=== PATIENT | male | born 1960 | race Caucasian/White ===

== ENCOUNTER 2016-10-28 05:44 | Day surgery (SDC) | payer BC, OTHER ==
[2016-10-28] MEDS ORDERED: LACTATED RINGERS 1,000 ML ONE (06:10)
[2016-10-28] MEDS ORDERED: PROPOFOL 200 MG/20 ML VIAL IV ONE (07:00)
--- NOTE | 2016-10-28 09:42 | OP ---
DATE OF PROCEDURE: 10/28/16 PREOPERATIVE DIAGNOSIS: 1. Bright red blood per rectum. 2. History of hemorrhoids. 3. Colon cancer screen. POSTOPERATIVE DIAGNOSIS: 1. Rectal mass with active bleeding. 2. Diverticulosis. PROCEDURE: 1. Colonoscopy with biopsy of rectal mass. SURGEON: Martin Tejeda MD. ANESTHESIA: MAC by Darci Houston CRNA. ESTIMATED BLOOD LOSS: 3 mL. COMPLICATIONS: None apparent. TECHNIQUE: After informed consent was obtained from the patient, the patient was taken to the Endoscopy Suite and put in the left lateral decubitus position. After adequate IV sedation was obtained, a digital rectal exam was performed. The sphincter tone was slightly diminished. He was found to have an easily palpated, circumferential rectal mass that started about one knuckle into the anus. The colonoscope was easily inserted and then the rectal mass was identified and pictures were taken. The colonoscope was cautiously passed and fortunately was then easily advanced all the way to the cecum. The bowel prep was fair. There was a lot of liquid stool that had to be suctioned clear. I did get a good look at the reset of the colon. The cecum, ascending colon, transverse colon, descending colon, and sigmoid colon were all free of any polyps or masses. He did have a few diverticula through the sigmoid region. The problems in the rectal area start around 12 cm and extend all the way down to the anal verge. The largest mass is more proximal and it was biopsied times two. There was some bleeding from the biopsy sites, but there was some oozing from this whole area in general to begin with. I did not try to remove any of the polyps or masses, but only took biopsies for an attempt at tissue diagnosis. Dr. Monae, our general surgeon, was consulted during the case and he visualized the mass and was present when the biopsies were taken. The patient, I am afraid, has potentially really bad disease. We are going to work to get a CT scan of his abdomen and pelvis performed as soon as possible. He will followup with me early next week. We are going to have him hold his aspirin, but he can continue to take his other medications. He will likely be headed towards the rectal surgeon and medical oncologist in the near future. #[id number] [facility]
[2016-10-28 09:45] VITALS: TEMP 99
[2016-10-28 09:47] VITALS: BP 158/99; O2SAT 99
== END 2016-10-28 09:35 | disposition home or self-care (01) ==
LOC: AMB 05:44
PROVIDERS: ATTEND Family Medicine
DX: K62.5 Hemorrhage of anus and rectum (principal); C20 Malignant neoplasm of rectum; K57.30 Diverticulosis of large intestine without perforation or abscess without bleeding; E11.9 Type 2 diabetes mellitus without complications; I10 Essential (primary) hypertension; E78.00 Pure hypercholesterolemia, unspecified; G47.33 Obstructive sleep apnea (adult) (pediatric); I25.10 Atherosclerotic heart disease of native coronary artery without angina pectoris; E66.9 Obesity, unspecified; Z95.1 Presence of aortocoronary bypass graft; Z79.899 Other long term (current) drug therapy
CPT/HCPCS: 00810; 45380; 82948; J3490; J7120

== ENCOUNTER → 2016-10-29 | Outpatient (CLI) | payer OTHER ==
--- NOTE | 2016-10-29 14:24 | CT ---
Study: CT abdomen and pelvis. Indication: RECTAL MASS Technique: Venous none. Findings: Venous phase CT imaging of the abdomen and pelvis obtained after intravenous administration of contrast. Comparison: None. Findings: Heart size normal. Lung bases clear. Coronary artery and abdominal aortic atherosclerosis. Liver, gallbladder, pancreas, spleen, adrenal glands, right kidney, bladder, prostate gland unremarkable. Several millimetric left renal stones suspected without hydronephrosis. Tiny bilateral fat containing inguinal hernias, right greater than left. Mild circumferential rectal wall thickening noted. Colonic diverticulosis without diverticulitis. Stomach, small bowel, and appendix unremarkable. No free fluid. No free air. No pathologically enlarged abdominopelvic lymphadenopathy. Degenerative changes of the spine. Impression: Mild circumferential rectal wall thickening which may relate to the reported history of rectal mass. Colonoscopy can better evaluate if not are not performed. Colonic diverticulosis without diverticulitis. Atherosclerosis. Additional findings as above. Electronically signed by: Cisco Reno MD 10/29/2016 14:23
== END | disposition home or self-care (01) ==
LOC: CT 10:42
PROVIDERS: ATTEND Family Medicine
DX: K82.9 Disease of gallbladder, unspecified (principal)

== ENCOUNTER → 2017-01-20 | Outpatient (CLI) | payer BC, OTHER | END | disposition home or self-care (01) | LOC: BFHH 17:45 | PROVIDERS: ATTEND Family Medicine | DX: R35.0 Frequency of micturition (principal); R30.0 Dysuria ==

== ENCOUNTER → 2017-02-02 | Outpatient (CLI) | payer OTHER | END | disposition home or self-care (01) | LOC: LAB.O 14:14 | PROVIDERS: ATTEND Urology | DX: R31.9 Hematuria, unspecified (principal) ==

== ENCOUNTER 2017-07-07 06:22 | Day surgery (SDC) | payer OTHER ==
[2017-07-07] MEDS ORDERED: LACTATED RINGERS 1,000 ML ONE (06:38)
[2017-07-07] MEDS ORDERED: LIDOCAINE 1% 10 ML VIAL INJ ONE (07:00)
[2017-07-07] MEDS ORDERED: PROPOFOL 200 MG/20 ML VIAL IV ONE (07:00)
[2017-07-07] MEDS ORDERED: SODIUM CHLORIDE 0.9% 50 ML VIAL ONE ×2 (07:00→07:10)
[2017-07-07] MEDS ORDERED: ceFAZolin SODIUM 1 GM VIAL ONE (07:00)
[2017-07-07] MEDS ORDERED: LIDOCAINE 1% 50 ML VIAL INJ ONE (07:09)
[2017-07-07] MEDS ORDERED: SODIUM BICARBONATE VIAL 50 MEQ/50 ML VIAL ONE (07:09)
[2017-07-07] MEDS ORDERED: HEPARIN SODIUM 100 U/ML 5 ML SYG IV ONE (07:10)
--- NOTE | 2017-07-07 08:20 | RAD ---
EXAM DESCRIPTION: Chest,2 Views CLINICAL HISTORY: PREOPERATIVE COMPARISON: None available FINDINGS: Postoperative changes are noted in the mediastinum. The cardiomediastinal silhouette is otherwise unremarkable. There is no airspace consolidation or pleural effusion. The bronchovascular markings are within normal limits, and the lungs are not hyperinflated. There is no pneumothorax or acute fracture. IMPRESSION: Postoperative changes in the mediastinum, otherwise unremarkable exam. Electronically signed by: Shorty Cantu MD 07/07/2017 8:18 AM CDT
[2017-07-07] MEDS ORDERED: ceFAZolin SODIUM 1 GM VIAL IVPB ONE (09:05)
[2017-07-07 10:09] VITALS: O2SAT 96
--- NOTE | 2017-07-07 10:21 | OP ---
DATE OF PROCEDURE: 07/07/17 PREOPERATIVE DIAGNOSIS: 1. Carcinoma of the rectum pending chemotherapy. POSTOPERATIVE DIAGNOSIS: 1. Carcinoma of the rectum pending chemotherapy. PROCEDURE: 1. Insertion of right subclavian venous access port. SURGEON: Benedicto Monae MD. COPY MESSENGER: None. ANESTHESIA: Local infiltration of 1% lidocaine with bicarb and IV sedation by Anesthesia. INDICATION: The patient is a 56-year-old male who had a very low rectal cancer. He underwent abdominoperineal resection, has had radiation and is now pending chemotherapy. He was brought to the Surgical Suite today for insertion of the port after the risks, benefits and alternatives to the procedure were discussed and accepted. FINDINGS: Fluoroscopy revealed the guidewire and then the catheter in the superior vena cava. PROCEDURE: The patient was brought to the Surgical Suite and placed in supine position, prepped and draped in the usual sterile manner. He was given 2 grams of Ancef and a surgical time-out was taken. When this was done, the patient was placed in Trendelenburg position. Local infiltration of anesthesia was obtained in the infraclavicular area with lidocaine and then the needle was walked under the clavicle. A 22-gauge needle was introduced. Eventually, venous blood was identified. A stab wound was made with a #15 blade and the 18- gauge thin wall needle was introduced in the same track. Venous blood was easily aspirated. The guidewire was introduced to approximately 25 cm. No ectopy was noted. The needle was removed. At this point, a towel was placed over the field and fluoroscopy was used to identify the guidewire in the superior vena cava. At this point, the port pocket was formed in the usual manner with local anesthesia, sharp knife and then blunt dissection and then electrocautery. Hemostasis was obtained with electrocautery. The port was introduced into the port pocket without difficulty and the catheter was tunneled from the port pocket to the infraclavicular incision. It was then cut to appropriate length. The dilator introducer was introduced over the guidewire and the guidewire and dilator were removed. The catheter was introduced through the introducer and the introducer was removed in the usual manner. At this point, the port was accessed, first with heparinized saline. It was easily aspirated and was flushed. The heplock was used again to aspirate and flush the catheter. At this point, a towel was placed over the field and fluoroscopy identified the catheter in the superior vena cava. The skin incisions were then closed in the usual manner with interrupted 2-0 Vicryl subcutaneous sutures and subcuticular 4-0 Vicryl simple sutures in the skin along with benzoin and Steri-Strips. Sterile pressure dressing was applied. The patient tolerated the procedure well. The patient was taken back to the Ambulatory Unit in stable condition. Estimated blood loss was approximately 25 mL. All sponge, needle and instrument counts were correct. Stat portable chest x-ray is pending. #[id number] [facility]
--- NOTE | 2017-07-07 10:23 | RAD ---
EXAM DESCRIPTION: Chest,1 View CLINICAL HISTORY: PORT PLACEMENT VERIFICATION COMPARISON: July 06, 2017 FINDINGS: There has been interval placement of a right-sided Mediport device with the tip of the port catheter projecting of the SVC at or just proximal to the cavoatrial junction. No complication is seen. Again noted are postoperative changes in the mediastinum. The heart is not enlarged. There is no airspace consolidation or pleural effusion. The bronchovascular markings are within normal limits, and the lungs are not hyperinflated. There is no pneumothorax or acute fracture. IMPRESSION: Interval placement of a right-sided Mediport device without apparent complication. Electronically signed by: Shorty Cantu MD 07/07/2017 10:22 AM CDT
[2017-07-07 10:47] VITALS: BP 148/84; TEMP 98.4
== END 2017-07-07 10:31 | disposition home or self-care (01) ==
LOC: AMB 06:22
PROVIDERS: ATTEND Surgery
DX: C20 Malignant neoplasm of rectum (principal); I10 Essential (primary) hypertension; I25.10 Atherosclerotic heart disease of native coronary artery without angina pectoris; E11.9 Type 2 diabetes mellitus without complications; F17.220 Nicotine dependence, chewing tobacco, uncomplicated; Z95.1 Presence of aortocoronary bypass graft; I45.2 Bifascicular block; Z79.84 Long term (current) use of oral hypoglycemic drugs; Z79.82 Long term (current) use of aspirin; Z79.899 Other long term (current) drug therapy
CPT/HCPCS: 00532; 36415; 36416; 36561; 71010; 71020; 76000; 80048; 81001; 82948; 85025; 93005; A4216; C1788; J0690; J1642; J3490; J7120

== ENCOUNTER → 2017-07-17 | Outpatient (CLI) | payer OTHER | END | disposition home or self-care (01) | LOC: LAB.O 12:17 | PROVIDERS: ATTEND Internal Medicine Hematology & Oncology | DX: C20 Malignant neoplasm of rectum (principal) ==

== ENCOUNTER 2017-07-20 10:33 | Inpatient (IN) | payer OTHER ==
--- NOTE | 2017-07-20 14:38 | HP ---
SUPERVISING PHYSICIAN: Manfred Solitario M.D. CHIEF COMPLAINT: Diarrhea. HISTORY OF PRESENT ILLNESS: This is a 56 year-old male patient who was diagnosed with rectal adenocarcinoma and had a colon resection with colostomy in December of 2016. He had recently started his chemotherapy on July 11. Right after the completion of his chemotherapy, he had severe diarrhea with some nausea and vomiting. The patient thought that the nausea, vomiting and diarrhea was associated with his chemotherapy so he tried to tough it out at home, and actually thought about coming to the Emergency Room several times during the past week and a half. He had an appointment with his primary care physician, Dr. Martin Tejeda, today. At his office visit today, he was very sick and continued with diarrhea. His lab at the clinic showed a WBC of 6.5, hemoglobin 16, hematocrit 44.6 with platelets of 314 and neutrophils of 74.5%. His glucose was 141, BUN 82, creatinine 3.9. He has a baseline creatinine of 0.85. Potassium 3, ALT 77. He also had some fairly significant oral ulcers and his mouth was very sensitive, so Dr. Tejeda called me for direct admission. PAST MEDICAL HISTORY: 1. Type 2 diabetes mellitus. 2. Hypertension. 3. Obesity. 4. Coronary artery disease. 5. Hyperlipidemia. 6. Lumbar disc disease. 7. Rectal adenocarcinoma. PAST SURGICAL HISTORY: 1. Colon resection with colostomy in December of 2016. 2. Right great toe fracture repair. 3. Left rotator cuff repair. 4. Coronary artery bypass graft in 2012 that was complicated by Wernicke's encephalopathy. 5. Tonsillectomy as a child. OUTPATIENT MEDICATIONS: Per the EMR and awaiting verification. ALLERGIES: NO KNOWN DRUG ALLERGIES. FAMILY HISTORY: Unknown. SOCIAL HISTORY: He is a teacher. He is . He has 2 children. He has a past history of cigarette smoking but has since quit and he currently uses smokeless tobacco. He drinks alcohol on a social basis and he denies any illicit drug use. REVIEW OF SYSTEMS: Positive for fatigue. Negative for fever or weight changes. HEENT: Positive for ulcers in his mouth as well as a sore tongue. Negative for ear pain, vision changes, sinus symptoms or sore throat. RESPIRATORY: Negative for dyspnea, wheezing or cough. CARDIAC: Negative for chest pain, palpitations or tachycardia. GASTROINTESTINAL: As per History of Present Illness. GENITOURINARY: Negative for hematuria, dysuria or polyuria. SKIN: Negative for rashes or lesions. NEUROLOGIC: Negative for headaches, dizziness or seizures. PHYSICAL EXAMINATION: VITAL SIGNS: Blood pressure 120/62, pulse 98, respiratory rate 18, O2 sat is 92 % on room air. GENERAL: This is a 56 year-old obese male patient who is lying in his hospital bed. HEENT: Normocephalic and atraumatic. Pupils are equal and reactive. Oropharynx is clear but his oral mucous membranes are dry. He does have several ulcerations on the lateral aspect of his tongue as well as in his oral cavity. NECK: Supple without mass. RESPIRATORY: Clear to auscultation bilaterally. CHEST: There is equal rise and fall of the chest with inspiration and expiration. CARDIOVASCULAR: Regular rate and rhythm. ABDOMEN: Soft, nondistended, non-tender. Bowel sounds are positive. He has a colostomy to his left upper quadrant. SKIN: Warm and dry. EXTREMITIES: No cyanosis, clubbing or edema. NEUROLOGIC: He is awake, alert and oriented times three. LABORATORY: As per the history of present illness. ASSESSMENT: 1. Severe diarrhea secondary to recent chemotherapy administration. 2. Oral ulcers. 3. Dehydration secondary to the diarrhea. 4. Acute renal failure with a creatinine of 3.9 with baseline creatinine of 0.85. 5. Nausea and vomiting prior to admission that is mostly resolved most likely secondary to his chemotherapy. 6. Diabetes mellitus type 2. 7. Coronary artery disease. 8. Hypertension. 9. History of rectal adenocarcinoma with a colon resection and colostomy in 2016. 10. Obesity. 11. Hyperlipidemia. PLAN: We will admit the patient to the hospital. I will give him IV fluids. I spoke with Dr. Guevara, hydraulic lift operator, and he agreed that his renal function should improve with fluids. He has been given Lomotil for his diarrhea. I will also give him some Protonix for ulcer prophylaxis as well as Lovenox for DVT prophylaxis. Repeated his lab for in the morning. I have ordered pulmonary hygiene. Hopefully once his renal function is corrected and we normalize his labs as well as stop his diarrhea, he will be able to be discharged home. Dr. Verde is his oncologist and I may need to touch base with him tomorrow, but otherwise we will continue to monitor the patient closely and follow as needed. Dr. Solitario is the collaborating physician available for consultation. [facility][id number] [facility]ITAL[facility]
[2017-07-20] MEDS ORDERED: SODIUM CHLORIDE 0.9% (FLUSH) 10 ML SYG IV PRN (15:18)
[2017-07-20] MEDS ORDERED: IV SET AND CAP CHANGE INJ INJ SCH (15:30)
[2017-07-20] MEDS ORDERED: DEXTROSE 50% 25 GM/50 ML SYG IV PRN (15:36)
[2017-07-20] MEDS ORDERED: GLUCAGON INJ 1 MG VIAL SUBCU PRN (15:36)
[2017-07-20] MEDS: PANTOPRAZOLE SODIUM IV 40 MG VIAL IV SCH (16:03)
[2017-07-20] MEDS: SUCRALFATE 1 GM/10 ML 1 GM UD PO SCH ×2 (16:03→20:21)
[2017-07-20] MEDS: ENOXAPARIN SODIUM 30 MG/0.3 ML SYG SUBCU SCH (16:09)
[2017-07-20] MEDS: KCL 40MEQ/NS 1,000 ML IVS PRN (16:09)
[2017-07-20] MEDS ORDERED: DIPHENOXYLATE HCL/ATROPINE 2.5 MG TAB PO PRN (17:14)
[2017-07-20] MEDS: INSULIN LISPRO 100 UNITS/ML PEN SUBCU SCH ×2 (17:38→21:25)
[2017-07-20] MEDS ORDERED: POTASSIUM CHLORIDE 20 MEQ TAB PO ONE (17:40)
[2017-07-20] MEDS ORDERED: SODIUM CHLORIDE 0.9% (FLUSH) 10 ML SYG IV SCH (21:00)
--- NOTE | 2017-07-20 21:04 | PCM.CORE ---
Physician DVT/VTE - Prophylaxis Currently: Patient already on anticoagulation therapy - Nurse DVT Assessment & Total Each Risk Factor Represents 1 Point: Age 41-60 DVT Assessment Score: 1 - 2 Moderate Risk Treatments: Early Ambulation *, Sequential Compression Device
[2017-07-20] MEDS ORDERED: SODIUM CHLORIDE 0.9% 500ML 500 ML IVS ONE (21:42)
[2017-07-21] MEDS: KCL 40MEQ/NS 1,000 ML IVS PRN ×2 (00:14→11:41)
[2017-07-21] MEDS: PANTOPRAZOLE SODIUM IV 40 MG VIAL IV SCH (06:31)
[2017-07-21] MEDS: SUCRALFATE 1 GM/10 ML 1 GM UD PO SCH ×4 (06:31→20:55)
[2017-07-21] MEDS ORDERED: POTASSIUM CHLORIDE 20 MEQ TAB PO ONE (07:08)
[2017-07-21] MEDS: INSULIN LISPRO 100 UNITS/ML PEN SUBCU SCH ×4 (08:22→20:56)
--- NOTE | 2017-07-21 08:41 | PN ---
SUPERVISING PHYSICIAN: Manfred Solitario MD DATE: 07/21/17 SUBJECTIVE: The patient is sitting up in his bed. He is reading. He has concerns that his blood pressure has been low overnight. I explained to him that it was most likely due to dehydration and that we were correcting that. Other than that, he has no complaints of nausea, vomiting, chest pain or shortness of breath. He does continue to have quite a bit of diarrhea in his colostomy. OBJECTIVE: VITAL SIGNS: Afebrile. Heart rate 73. Blood pressure 92/56. Respiratory rate 20. O2 saturation 94% on room air. LUNGS: Clear to auscultation bilaterally. CARDIAC: Regular rate and rhythm. ABDOMEN: Soft, nondistended, nontender. Bowel sounds are positive. EXTREMITIES: No cyanosis, clubbing or edema. NEUROLOGIC: Awake, alert and oriented times three. LABORATORY: WBCs 5.4, hemoglobin 13.7, hematocrit 40.4. Platelet count 216. Sodium 135, potassium 3.3, chloride 105, carbon dioxide 20, BUN 23, creatinine improved from 3.9 yesterday to 3.3 today. Glucose 114, serum osmolality 299.6. Calcium 7.7. All other labs and films have been reviewed via the EMR. ASSESSMENT: 1. Severe diarrhea secondary to recent chemotherapy administration. 2. Oral ulcers. 3. Dehydration secondary to the diarrhea. 4. Acute renal failure with a creatinine of 3.9 on admission, now at 3.3 with baseline creatinine of 0.85. 5. Nausea and vomiting prior to admission that is mostly resolved, but continues to have diarrhea like stools in his colostomy bag 2 to 3 times daily, most likely secondary to his chemotherapy. 6. Diabetes mellitus, type 2. 7. Coronary artery disease. 8. Hypertension. 9. History of rectal adenocarcinoma with a colon resection and colostomy in 2016. 10. Obesity. 11. Hyperlipidemia. 12. Borderline hypotension during hospital stay. PLAN: We will continue present supportive care. I will continue with his IV fluids although I will reduce the rate. I have held his blood pressure medicine with the exception that he will get a half dose of his metoprolol today and we will have to reassess his blood pressure medications in the next day or so. Once his renal function has somewhat corrected as well as his blood pressure stabilizes, we will able to be discharge him home. We will also need to correct his dehydration. We may need to touch base with Dr. Verde, his oncologist, but otherwise we will continue to monitor the patient closely and follow as needed. Dr. Solitario is the collaborating physician and available for consultation. #[id number] [facility]
[2017-07-21] MEDS ORDERED: METOPROLOL SUCCINATE XL 25 MG TAB PO ONE (09:00)
[2017-07-21] MEDS ORDERED: NON-FORMULARY MEDICATION 1 EA MIS (Atorvastatin Calcium [Lipitor] 40 MG) PO SCH (09:00)
[2017-07-21] MEDS ORDERED: metFORMIN XR 500 MG TAB.ER.24 PO SCH (09:00)
[2017-07-21] MEDS ORDERED: [UNRECOGNIZED DRUG - OTHER] PO SCH (09:00)
[2017-07-21] MEDS ORDERED: METOPROLOL SUCCINATE XL 50 MG TAB PO SCH (09:00)
[2017-07-21] MEDS: ENOXAPARIN SODIUM 30 MG/0.3 ML SYG SUBCU SCH (09:47)
[2017-07-21] MEDS: amLODIPine BESYLATE 5 MG TAB PO SCH (09:48)
[2017-07-21] MEDS: ASPIRIN EC 81 MG TAB PO SCH (09:48)
[2017-07-21] MEDS: DULoxetine HCL 30 MG CAP PO SCH (09:49)
[2017-07-21] MEDS: VALSARTAN 80 MG TAB PO SCH (09:49)
[2017-07-21] MEDS: hydroCHLOROthiazide 25 MG TAB PO SCH (09:49)
[2017-07-21] MEDS: NON-FORMULARY MEDICATION 1 EA MIS (Empagliflozin [Jardiance] 10 MG) PO SCH (09:50)
[2017-07-21] MEDS ORDERED: ATORVASTATIN 20 MG TAB PO ONE (19:31)
[2017-07-21] MEDS: ATORVASTATIN 20 MG TAB PO SCH (20:55)
[2017-07-22] MEDS: KCL 40MEQ/NS 1,000 ML IVS PRN (03:19)
[2017-07-22] MEDS: PANTOPRAZOLE SODIUM IV 40 MG VIAL IV SCH (06:18)
[2017-07-22] MEDS: SUCRALFATE 1 GM/10 ML 1 GM UD PO SCH (06:18)
[2017-07-22] MEDS: INSULIN LISPRO 100 UNITS/ML PEN SUBCU SCH (07:30)
[2017-07-22] MEDS ORDERED: METOPROLOL SUCCINATE XL 50 MG TAB ONE (07:32)
[2017-07-22] MEDS ORDERED: POTASSIUM CHLORIDE 20 MEQ TAB PO ONE (08:42)
[2017-07-22] MEDS: VALSARTAN 80 MG TAB PO SCH (09:06)
[2017-07-22] MEDS: DULoxetine HCL 30 MG CAP PO SCH (09:07)
[2017-07-22] MEDS: ATORVASTATIN 20 MG TAB PO SCH (09:07)
[2017-07-22] MEDS: amLODIPine BESYLATE 5 MG TAB PO SCH (09:08)
[2017-07-22] MEDS: NON-FORMULARY MEDICATION 1 EA MIS (Empagliflozin [Jardiance] 10 MG) PO SCH (09:08)
[2017-07-22] MEDS: ASPIRIN EC 81 MG TAB PO SCH (09:08)
[2017-07-22] MEDS: hydroCHLOROthiazide 25 MG TAB PO SCH (09:08)
[2017-07-22] MEDS: ENOXAPARIN SODIUM 30 MG/0.3 ML SYG SUBCU SCH (09:09)
[2017-07-22] MEDS ORDERED: HEPARIN SODIUM 100 U/ML 5 ML SYG IV ONE ×2 (09:14→09:17)
[2017-07-22] MEDS ORDERED: INFLUENZA VIRUS VACC (ADULT) 0.5 ML SYG IM ONE (09:17)
[2017-07-22 09:19] VITALS: BP 118/72; TEMP 98; O2SAT 100
[2017-07-22] MEDS ORDERED: MAGNESIUM OXIDE 400 MG TAB PO SCH (09:30)
--- NOTE | 2017-07-22 11:32 | DS ---
SUPERVISING PHYSICIAN: Manfred Solitario MD DISCHARGE DIAGNOSIS: 1. Severe diarrhea secondary to recent chemotherapy administration, now mostly resolved. 2. Oral ulcers. 3. Dehydration secondary to the diarrhea. 4. Acute renal failure with a creatinine of 3.9 on admission, now 1.37. His baseline creatinine is 0.85. 5. Nausea and vomiting prior to admission, resolved. 6. Diabetes mellitus, type 2. 7. Coronary artery disease. 8. Hypertension. 9. History of rectal adenocarcinoma with a colon resection and colostomy in 2016, presently on chemotherapy and followed by Dr. Josue Verde, oncologist. 10. Obesity. 11. Hyperlipidemia. 12. Borderline hypotension during hospital stay. HISTORY OF PRESENT ILLNESS: This is a 56-year-old male patient who was diagnosed with rectal adenocarcinoma and had a colon resection with colostomy in December of 2016. He had recently started his chemotherapy on July 11. He is being followed by Josue Verde, oncologist. Right after the completion of his chemotherapy, he had severe diarrhea with some nausea and vomiting. He does have a colostomy. The patient was at home for several days while he was ill and then eventually went into see his primary care physician, Dr. Martin Tejeda. At the office visit on the date of admission, he was very sick and continued with diarrhea and some nausea.. His lab at the clinic showed a WBCs of 6.5, hemoglobin 16, hematocrit 44.6 with platelets of 314 and neutrophils of 74.5%. His glucose was 141, BUN 82, creatinine 3.9. He has a baseline creatinine of 0.85. Potassium 3, ALT 77. He also had some fairly significant oral ulcers and his mouth was very sensitive. Dr. Tejeda sent the patient over for direct admission. HOSPITAL COURSE: The patient was given IV fluids as well as Lomotil. He had no bouts of nausea and vomiting while in the hospital, but he continued to have fairly loose stools numerous times during the day, although those slowly subsided. He has had no complaints of nausea, vomiting or diarrhea over the last 24 hours. In fact, he states his stools have become very formed and he is feeling much, much better. He has been walking in the hallways. His potassium continues to be low and has gotten supplemental potassium over his hospital stay. He has also required a magnesium infusion and his creatinine has come down to 1.37. He received some supplemental potassium today as well as some oral mag ox. Also during his hospital stay, he was borderline hypotensive with systolic blood pressures in the 90s to 100s. His Exforge with HCTZ was held and he initially only 25 mg of his metoprolol. Yesterday, his metoprolol was increased to 50 mg, which is his usual dose. He has not re-started his other antihypertensive. His metformin was also held due to his renal function and the patient is feeling well enough today that he can be discharged home. DISCHARGE PLAN: The patient will be discharged home in stable condition. I spoke with his primary care physician, Dr. Tejeda, and he agreed that we should leave the patient off of his Exforge with HCTZ and continue his metoprolol. He has an appointment with Dr. Josue Verde on Tuesday for his chemotherapy. He will also have a followup with Dr. Tejeda on 08/01/17 in clinic. At that time, he needs to have a CMP, magnesium and CBC done. I have held his Exforge/HCTZ for now and will continue on his normal dosing of his metoprolol succinate, which is 50 mg daily. He is to resume his metformin tomorrow, but may consider discontinuing that if his renal function continues to be compromised. He is to resume his previous diet, his other previous medications. I have also included a very low dose of potassium supplement because his potassium has been low during his hospital stay. I have also continue his Carafate for the mouth ulcers and I told him he could do that as needed. He is to return to the hospital or call Dr. Tejeda' office or Dr. Verde's office for any further complications. DISCHARGE MEDICATIONS: 1. Thiamine. 2. [place] 3 fatty acids. 3. Multivitamins. 4. Metoprolol succinate. 5. Metformin. 6. Jardiance. 7. Cymbalta. 8. Cyanocobalamin. 9. Lipitor. 10. Aspirin. 11. Ascorbic acid. 12. Carafate. 13. Potassium chloride. Dr. Solitario is the collaborating physician and available for consultation. #[id number] [facility]
== END 2017-07-22 11:40 | disposition home or self-care (01) | DRG 394 ==
LOC: GMAJ 10:33 → MS 14:10
PROVIDERS: ADMIT Nurse Practitioner Acute Care; ATTEND Nurse Practitioner Acute Care
DX: K52.1 Toxic gastroenteritis and colitis (principal); N17.9 Acute kidney failure, unspecified; T45.1X5A Adverse effect of antineoplastic and immunosuppressive drugs, initial encounter; E86.0 Dehydration; E11.9 Type 2 diabetes mellitus without complications; I25.10 Atherosclerotic heart disease of native coronary artery without angina pectoris; I10 Essential (primary) hypertension; E66.9 Obesity, unspecified; E78.5 Hyperlipidemia, unspecified; M51.36 Other intervertebral disc degeneration, lumbar region; K12.1 Other forms of stomatitis; F17.220 Nicotine dependence, chewing tobacco, uncomplicated; Z85.048 Personal history of other malignant neoplasm of rectum, rectosigmoid junction, and anus; Y92.9 Unspecified place or not applicable; Z90.49 Acquired absence of other specified parts of digestive tract; Z93.3 Colostomy status; Z95.1 Presence of aortocoronary bypass graft

== ENCOUNTER → 2017-08-15 | Outpatient (CLI) | payer OTHER | END | disposition home or self-care (01) | LOC: LAB.O 11:27 | PROVIDERS: ATTEND Internal Medicine Hematology & Oncology | DX: C20 Malignant neoplasm of rectum (principal) ==

== ENCOUNTER → 2017-09-23 | Outpatient (CLI) | payer OTHER | END | disposition home or self-care (01) | LOC: LAB 10:35 | PROVIDERS: ATTEND Internal Medicine Hematology & Oncology | DX: C20 Malignant neoplasm of rectum (principal) ==

== ENCOUNTER → 2017-10-10 | Outpatient (CLI) | payer OTHER | LOC: LAB.O 08:47 | PROVIDERS: ATTEND Internal Medicine Hematology & Oncology | DX: C20 Malignant neoplasm of rectum (principal) ==

== ENCOUNTER 2018-04-12 05:40 | Day surgery (SDC) | payer OTHER ==
[2018-04-12] MEDS ORDERED: LACTATED RINGERS 1,000 ML ONE (06:06)
[2018-04-12] MEDS ORDERED: fentaNYL CITRATE INJ 50 MCG/ML AMP ONE (07:24)
[2018-04-12] MEDS ORDERED: MIDAZOLAM INJ 2 MG/2 ML VIAL ONE (07:24)
--- NOTE | 2018-04-12 09:58 | OP ---
DATE OF PROCEDURE: 04/12/18 PREPROCEDURE DIAGNOSIS: 1. History of colon cancer status post colonic resection and diverting colostomy. 2. Surveillance colonoscopy. POSTPROCEDURE DIAGNOSIS: 1. Suboptimal bowel preparation. 2. Status post diverting colostomy. PROCEDURE: 1. Colonoscopy. SURGEON: Victor M Hernandes MD SEDATION: The patient was sedated via IV propofol by the Anesthesia Department. COMPLICATIONS: No immediate complications. CONSENT: Prior to the procedure, risks, benefits and alternatives to the therapy were discussed with the patient. The risks included bleeding, infection , perforation and . The patient agreed to the procedure and signed a consent. PREPROCEDURE ANESTHESIA ASSESSMENT: An examination revealed no contraindication to sedation. Airway examination demonstrated a Mallampati class type 2, ASA grade assessment type 2. Throughout the procedure, the patient's blood pressure, pulse and oxygen saturation were monitored continuously. PROCEDURE: The patient was placed in the supine position and an ostomy exam was performed. The ostomy exam revealed no abnormalities. The Olympus colonoscope was passed into the ostomy, up into the descending, transverse, ascending colon and cecum. The scope was retracted and the mucosa was visualized. The entirety of the exam was performed with direct visualization. Preparation quality was suboptimal. The withdrawal time was greater than 6 minutes. The patient tolerated the procedure well. FINDINGS: 1. The ostomy appeared intact and healthy. 2. Copious amount of liquid and semisolid stool was found throughout the colon, predominantly in the ascending and cecum colon. Lavage was attempted for better visualization, but this was not possible. No evidence of lesions were seen throughout the colon, however, the exam was limited. IMPRESSION: 1. Suboptimal bowel preparation. 2. Status post diverting colostomy. RECOMMENDATION: 1. Return the patient home. 2. Resume previous medications. 3. Consider repeating colonoscopy within one year due to suboptimal bowel preparation. 4. Return to my office in the next one to two weeks after discharge. #[id number] [facility]
[2018-04-12] MEDS ORDERED: PROPOFOL 200 MG/20 ML VIAL IV ONE (10:00)
[2018-04-12 11:25] VITALS: BP 142/70; TEMP 98; O2SAT 95
== END 2018-04-12 10:05 ==
LOC: AMB 05:40
PROVIDERS: ATTEND Internal Medicine Gastroenterology
DX: Z08 Encounter for follow-up examination after completed treatment for malignant neoplasm (principal); Z85.038 Personal history of other malignant neoplasm of large intestine; I10 Essential (primary) hypertension; I25.10 Atherosclerotic heart disease of native coronary artery without angina pectoris; I25.2 Old myocardial infarction; E11.9 Type 2 diabetes mellitus without complications; E66.9 Obesity, unspecified; G47.30 Sleep apnea, unspecified; Z93.3 Colostomy status
CPT/HCPCS: 00811; 36416; 45378; 82948; J2250; J3010; J3490; J7120

== ENCOUNTER → 2018-09-22 | Outpatient (CLI) | payer OTHER ==
--- NOTE | 2018-09-22 08:58 | RAD ---
EXAM DESCRIPTION: Foot,Right 3 Views CLINICAL HISTORY: 57 years Male, PAIN IN RIGHT FOOT COMPARISON: None. FINDINGS: Three views of the right foot show a mid diaphyseal right fifth metatarsal fracture with minimal displacement. No additional acute fracture or malalignment. Postoperative changes in the great toe. Calcaneal enthesophyte formation including a prominent plantar calcaneal enthesophyte. IMPRESSION: Minimally displaced right fifth metatarsal diaphyseal fracture. Electronically signed by: Shorty Cantu MD 09/22/2018 8:56 AM [facility]
== END ==
LOC: RAD 08:33
PROVIDERS: ATTEND Orthopaedic Surgery
DX: S92.351A Displaced fracture of fifth metatarsal bone, right foot, initial encounter for closed fracture (principal)

== ENCOUNTER → 2018-11-29 | Outpatient (CLI) | payer OTHER | LOC: GMAJ 11:02 | PROVIDERS: ATTEND Family Medicine | DX: Z12.5 Encounter for screening for malignant neoplasm of prostate (principal) ==

== ENCOUNTER → 2019-08-19 | Outpatient (CLI) | payer OTHER | LOC: SL 19:14 | PROVIDERS: ATTEND Family Medicine | DX: G47.33 Obstructive sleep apnea (adult) (pediatric) (principal); R06.83 Snoring; R06.81 Apnea, not elsewhere classified; I10 Essential (primary) hypertension; E11.9 Type 2 diabetes mellitus without complications ==

== ENCOUNTER → 2020-10-13 | Outpatient (CLI) | payer BC | LOC: GMAJ 14:43 | PROVIDERS: ATTEND Family Medicine | DX: Z12.5 Encounter for screening for malignant neoplasm of prostate (principal); Z13.29 Encounter for screening for other suspected endocrine disorder; I10 Essential (primary) hypertension ==